=== PATIENT | female | born 1965 | race Caucasian/White ===

== ENCOUNTER 2018-05-24 07:19 | Emergency (ER) | payer OTHER ==
[~2018-05-24] VITALS: Ht 167.6 cm; Wt 104.3 kg
[2018-05-24] MEDS ORDERED: MELO7.5 PO (07:35)
[2018-05-24] MEDS ORDERED: PANT40 PO (07:35)
[2018-05-24] MEDS ORDERED: LISI20 PO (07:36)
[2018-05-24] MEDS ORDERED: METCAR500 PO (07:36)
[2018-05-24] MEDS ORDERED: METO25ER PO (07:36)
[2018-05-24] MEDS ORDERED: Prednisone20 MG PO (07:57)
[2018-05-24] MEDS ORDERED: Ultram50 MG PO (07:57)
== END 2018-05-24 08:27 | disposition home or self-care (01) ==
LOC: ER 07:19
DX: S39.011A Strain of muscle, fascia and tendon of abdomen, initial encounter (principal); W01.198A Fall on same level from slipping, tripping and stumbling with subsequent striking against other object, initial encounter; Z79.899 Other long term (current) drug therapy; Z79.52 Long term (current) use of systemic steroids; I10 Essential (primary) hypertension; K21.9 Gastro-esophageal reflux disease without esophagitis
CPT/HCPCS: 99283